=== PATIENT | female | born 1975 | race Caucasian/White ===

== ENCOUNTER 2017-01-06 01:40 | Emergency (ER) | payer MEDICAID | END 2017-01-06 04:19 | disposition home or self-care (01) | DX: K80.20 Calculus of gallbladder without cholecystitis without obstruction (principal); R31.9 Hematuria, unspecified; Z87.442 Personal history of urinary calculi; E11.9 Type 2 diabetes mellitus without complications; Z79.84 Long term (current) use of oral hypoglycemic drugs; E03.9 Hypothyroidism, unspecified ==

== ENCOUNTER 2017-01-13 05:18 | Outpatient (CLI) | payer MEDICAID | END 2017-01-13 05:19 | disposition critical access hospital (66) | DX: R10.9 Unspecified abdominal pain (principal); R11.2 Nausea with vomiting, unspecified | CPT/HCPCS: A0425; A0429 ==

== ENCOUNTER 2017-01-13 05:28 | Day surgery (SDC) | payer MEDICAID ==
[2017-01-13] MEDS ORDERED: SODIUM CHLORIDE 0.9% 1,000 ML IV ONE ×2 (06:12→06:13)
[2017-01-13] MEDS ORDERED: ONDANSETRON 4 MG/2 ML VIAL IVP STA (06:12)
[2017-01-13] MEDS ORDERED: HYDROmorphone 1 MG/ML SYRINGE IVP STA (06:12)
[2017-01-13] MEDS ORDERED: HYDROmorphone 1 MG/ML SYRINGE ONE (06:13)
[2017-01-13] MEDS ORDERED: ONDANSETRON 4 MG/2 ML VIAL ONE ×2 (06:13→18:44)
[2017-01-13] MEDS ORDERED: LACTATED RINGERS 1,000 ML IV ONE ×2 (09:26→16:50)
[2017-01-13] MEDS ORDERED: PIPERACILLIN/TAZOBACTAM 3.375 GM in SODIUM CHLORIDE 0.9% MINIBAG 100 ML IV ONE (16:00)
[2017-01-13] MEDS ORDERED: BUPIVACAINE 0.5%-EPI 1:200000 PF 30 ML VIAL SUBQ ONE ×2 (16:31)
[2017-01-13] MEDS ORDERED: ONDANSETRON 4 MG/2 ML VIAL IVP ONE (16:51)
[2017-01-13] MEDS ORDERED: NEOSTIGMINE 1 MG/1 ML 10 ML MDV IVP ONE (16:51)
[2017-01-13] MEDS ORDERED: METOCLOPRAMIDE 10 MG/2 ML VIAL IVP ONE (16:51)
[2017-01-13] MEDS ORDERED: GLYCOPYRROLATE 1 MG/5 ML VIAL IVP ONE (16:51)
[2017-01-13] MEDS ORDERED: ROCURONIUM 50 MG/5 ML VIAL IVP ONE (16:51)
[2017-01-13] MEDS ORDERED: SUCCINYLCHOLINE 200 MG/10 ML VIAL IVP ONE (16:51)
[2017-01-13] MEDS ORDERED: HYDROmorphone 1 MG/ML SYRINGE IVP ONE (16:51)
[2017-01-13] MEDS ORDERED: ACETAMINOPHEN 1,000 MG/100 ML VIAL IV ONE (16:51)
[2017-01-13] MEDS ORDERED: PHENYLEPHRINE 50 MG/5 ML VIAL IV ONE (16:51)
[2017-01-13] MEDS ORDERED: LIDOCAINE-MPF 2% 5 ML VIAL IM ONE (16:51)
[2017-01-13] MEDS ORDERED: KETOROLAC 30 MG/ML VIAL IVP ONE (16:51)
[2017-01-13] MEDS ORDERED: MIDAZOLAM 2 MG/2 ML VIAL IVP ONE (16:51)
[2017-01-13] MEDS ORDERED: PROPOFOL 200 MG/20 ML VIAL IVP ONE (16:51)
[2017-01-13] MEDS ORDERED: MEPERIDINE 50 MG/ML SYRINGE ONE (17:46)
[2017-01-13] MEDS ORDERED: oxyCOD/ACETAMIN 5 MG/325 MG TABLET PO ONE (18:33)
== END 2017-01-13 09:01 | disposition home or self-care (01) ==
PROC: 0FT44ZZ Resection of Gallbladder, Percutaneous Endoscopic Approach (ICD-10-PCS; principal; 2017-01-13 13:30)
DX: K80.10 Calculus of gallbladder with chronic cholecystitis without obstruction (principal); E11.9 Type 2 diabetes mellitus without complications; Z79.4 Long term (current) use of insulin; E03.9 Hypothyroidism, unspecified; E66.01 Morbid (severe) obesity due to excess calories; F41.8 Other specified anxiety disorders; Z68.36 Body mass index [BMI] 36.0-36.9, adult
CPT/HCPCS: 36415; 47562; 80053; 81025; 83690; 85025; 96361; 96374; 96375; 99284; 99285; A9270; J0131; J1170; J7120

== ENCOUNTER 2017-01-23 11:00 | Outpatient (CLI) | payer MEDICAID | END 2017-01-23 11:01 | disposition home or self-care (01) | DX: Z12.31 Encounter for screening mammogram for malignant neoplasm of breast (principal) ==

== ENCOUNTER 2017-01-31 07:43 | Outpatient (CLI) | payer MEDICAID | END 2017-01-31 07:44 | disposition home or self-care (01) | DX: Z51.81 Encounter for therapeutic drug level monitoring (principal); E78.5 Hyperlipidemia, unspecified; E11.9 Type 2 diabetes mellitus without complications; E53.1 Pyridoxine deficiency; E06.3 Autoimmune thyroiditis ==

== ENCOUNTER 2017-06-04 09:34 | Outpatient (CLI) | payer MEDICAID ==
[2017-06-04 13:32] LABS: CHOL/HDL RATIO 5.6 (<4.4); CHOLESTEROL 219 mg/dL; HDL CHOLESTEROL 39 mg/dL; LDL/HDL RATIO 3.1 (<4.4); TRIGLYCERIDES 307 mg/dL; VLDL CHOLESTEROL 61 mg/dL
[2017-06-04 13:52] LABS: THYROID STIMULATING HORMONE 1.38 uIU/mL (0.34-5.60)
[2017-06-04 13:54] LABS: HEMOGLOBIN A1C 0.67 g/dL
== END 2017-06-04 09:35 | disposition home or self-care (01) ==
LOC: LAB.WCP 09:34
PROVIDERS: ATTEND Physician Assistant Medical
DX: E11.9 Type 2 diabetes mellitus without complications (principal); E78.5 Hyperlipidemia, unspecified; Z51.81 Encounter for therapeutic drug level monitoring; Z79.899 Other long term (current) drug therapy; E53.1 Pyridoxine deficiency; E06.3 Autoimmune thyroiditis
CPT/HCPCS: 36415; 80061; 82043; 82607; 83036; 84207; 84443

== ENCOUNTER 2017-08-28 10:05 | Outpatient (CLI) | payer MEDICAID | END 2017-08-28 10:06 | disposition home or self-care (01) | LOC: LAB.WCP 10:05 | PROVIDERS: ATTEND Family Medicine | DX: N39.0 Urinary tract infection, site not specified (principal) | CPT/HCPCS: 87086 ==

== ENCOUNTER 2017-10-05 21:01 | Emergency (ER) | payer MEDICAID ==
[2017-10-05] MEDS ORDERED: SULFAM/TRIM 800/160 Prepack 2 PO ONE ×2 (22:58→23:29)
--- NOTE | 2017-10-05 23:00 | ED Physician Documentation ---
PD HPI SKIN - Stated complaint Stated Complaint: FEMALE - Chief complaint Chief Complaint: Wound - History obtained from History obtained from: Patient - History of Present Illness Timing - onset: How many days ago (3) Timing - duration: Days (3) Timing - details: Gradual onset, Still present Location: Other (right buttocks) Quality / character: Painful Associated symptoms: No: Fever, Myalgias Similar symptoms before: Has not had sx before Recently seen: Not recently seen - Additional information Additional information: 42-year-old female has an area on her right buttocks that is tender sore red and raised. She has been using a heating pack to the area and this is worsened over the past 2 days. She is come in this evening with intolerable pain. She does not have any fluctuance to the area and no drainage to the area Review of Systems Constitutional: denies: Fever Eyes: denies: Decreased vision Nose: denies: Congestion Respiratory: denies: Cough GI: denies: Vomiting : denies: Dysuria Skin: reports: Other (Red tender area over the buttocks) Neurologic: denies: Generalized weakness, Focal weakness, Numbness PD PAST MEDICAL HISTORY - Past Medical History Cardiovascular: None Respiratory: None Endocrine/Autoimmune: Type 2 diabetes, HyPOthyroidism GI: Cholelithiasis : None HEENT: None Psych: Depression, Anxiety Musculoskeletal: Chronic back pain Derm: None - Past Surgical History Past Surgical History: No - Present Medications Home Medications: Ambulatory Orders Medication Instructions Recorded Confirmed Bupropion HCl [Wellbutrin] 100 mg PO .FREQ 04/25/16 10/05/17 Escitalopram [Lexapro] 10 mg PO DAILY 04/25/16 10/05/17 Levothyroxine [Synthroid] 25 mcg PO QDAC 04/25/16 10/05/17 Sulfamethoxazole/Trimethoprim 1 each PO BID #14 tablet 10/05/17 [Sulfamethoxazole-Tmp Ds Tablet] - Allergies Allergies/Adverse Reactions: Allergies Allergy/AdvReac Type Severity Reaction Status Date / Time No Known Drug Allergies Allergy Verified 10/05/17 21:45 - Social History Does the pt smoke?: No Smoking Status: Never smoker Does the pt drink ETOH?: Yes Does the pt have substance abuse?: No - Immunizations Immunizations are current?: Yes - POLST Patient has POLST: No PD ED PE NORMAL - Vitals Vital signs reviewed: Yes (Hypertensive) - General General: Alert and oriented X 3, No acute distress, Well developed/nourished - HEENT HEENT: Atraumatic - Respiratory Respiratory: No respiratory distress - Derm Derm: Normal color, Warm and dry, Other (Over the right buttocks medially is an area approximately 3 cm round that is firm erythematous tender and without fluctuance. There is a central area of skin breakdown without drainage.The area is examined with the bedside ultrasound there is no fluid collection. There are multiple septations in the skin.) - Extremities Extremities: No deformity, No edema - Neuro Neuro: Alert and oriented X 3, No motor deficit, No sensory deficit, Normal speech Eye Opening: Spontaneous Motor: Obeys Commands Verbal: Oriented GCS Score: 15 - Psych Psych: Normal mood, Normal affect Results - Vitals Vitals: Vital Signs - 24 hr 10/05/17 21:43 Temperature 98.3 C H Heart Rate 90 Respiratory 16 Rate Blood Pressure 165/99 H O2 Saturation 98 Oxygen O2 Source Room air Procedures - Bedside sono Bedside sono by EMP: With use of bedside ultrasound the abscess area is examined there is no correct fluid component there are multiple septations none of them are wide. PD MEDICAL DECISION MAKING - ED course Complexity details: reviewed old records, considered differential, d/w patient ED course: 42-year-old female with an abscess to the right buttocks that is not right. She is given Septra DS and instructions on when or if to follow-up for abscess incision and drainage. Departure - Departure Disposition: 01 Home, Self Care Clinical Impression: Abscess of buttock, right Condition: Stable Instructions: ED Staph Infec Abx Tx Only Follow-Up: Marilee Davila PA-C [Primary Care Provider] - Prescriptions: Sulfamethoxazole/Trimethoprim [Sulfamethoxazole-Tmp Ds Tablet] 1 each PO BID # 14 tablet Comments: Today in the Emergency Department your blood pressure was elevated. This can happen from the stress of the visit itself, from a current illness or circumstance or from uncontrolled hypertension. If you take blood pressure medications take your usual mediations, have your blood pressure re-checked in an appropriate setting and follow up any elevation with your primary care doctor.
[2017-10-05 23:32] VITALS: BP 126/76
== END 2017-10-05 23:29 | disposition home or self-care (01) ==
LOC: ED 21:01
DX: L02.31 Cutaneous abscess of buttock (principal); E11.9 Type 2 diabetes mellitus without complications; E03.9 Hypothyroidism, unspecified; R03.0 Elevated blood-pressure reading, without diagnosis of hypertension
CPT/HCPCS: 99283

== ENCOUNTER 2017-11-21 16:00 | Outpatient (CLI) | payer MEDICAID | END 2017-11-21 16:01 | disposition home or self-care (01) | LOC: LAB.R 16:00 | PROVIDERS: ATTEND Physician Assistant Medical | DX: N39.0 Urinary tract infection, site not specified (principal) | CPT/HCPCS: 87086 ==

== ENCOUNTER 2018-05-15 10:48 | Outpatient (CLI) | payer MEDICAID ==
[2018-05-15 19:29] LABS: ALBUMIN 3.9 g/dL (3.2-5.5); ALKALINE PHOSPHATASE 59 IU/L (42-121); ALT ALANINE AMINOTRANSFERASE 25 IU/L (10-60); AST ASPARTATE AMINOTRANSFERASE 25 IU/L (10-42); BILIRUBIN,TOTAL 0.6 mg/dL (0.2-1.0); BUN - BLOOD UREA NITROGEN 12 mg/dL (6-20); CALCIUM 8.9 mg/dL (8.5-10.3); CARBON DIOXIDE - CO2 22 mmol/L (21-32); CHLORIDE 103 mmol/L (101-111); CHOL/HDL RATIO 4.6 (<4.4); CHOLESTEROL 198 mg/dL; CREATININE 0.6 mg/dL (0.4-1.0); GFR - MDRD 109 (>89); GLUCOSE 140 mg/dL (70-100); HDL CHOLESTEROL 43 mg/dL; LDL CHOLESTEROL,CALCULATED 100 mg/dL; LDL/HDL RATIO 2.3 (<4.4); SODIUM 134 mmol/L (135-145); TOTAL PROTEIN 7.8 g/dL (6.7-8.2); VLDL CHOLESTEROL 55 mg/dL
[2018-05-15 19:30] LABS: HB2 TOTAL 14.3 g/dL; HEMOGLOBIN A1C 0.77 g/dL; HEMOGLOBIN A1C % 7.1 % (4.6-6.2)
[2018-05-15 19:39] LABS: THYROID STIMULATING HORMONE 2.65 uIU/mL (0.34-5.60)
== END 2018-05-15 10:49 | disposition home or self-care (01) ==
LOC: LAB.WCP 10:48
PROVIDERS: ATTEND Physician Assistant Medical
DX: E53.8 Deficiency of other specified B group vitamins (principal); Z51.81 Encounter for therapeutic drug level monitoring; E78.5 Hyperlipidemia, unspecified; E11.9 Type 2 diabetes mellitus without complications; E06.3 Autoimmune thyroiditis
CPT/HCPCS: 36415; 80053; 80061; 82607; 83036; 83721; 84443

== ENCOUNTER 2018-07-07 14:46 | Emergency (ER) | payer MEDICAID ==
[2018-07-07] MEDS ORDERED: PENICILLIN VK 250 MG TABLET PO STA (15:55)
[2018-07-07] MEDS ORDERED: HYDROcod/ACETAM 5/325 MG TABLET PO STA (15:55)
--- NOTE | 2018-07-07 15:57 | ED Physician Documentation ---
History of Present Illness - Stated complaint Stated Complaint: TOOTH PX - Chief complaint Chief Complaint: Heent - History obtained from History obtained from: Patient - History of Present Illness Timing: How many days ago (4) Pain level max: 8 Pain level now: 7 Improved by: nothing Worsened by: eating - Additonal information Additional information: Patient is a 43-year-old female who presents to the emergency department with left-sided dental pain, she is unclear if it is on the upper lower part of the jaw. Attempted to call her dentist this morning but they are not open until tomorrow. No fevers. Is taken Motrin and Tylenol without relief. No facial swelling. No vomiting. Is not , breast-feeding or attempting to become Review of Systems Constitutional: denies: Fever, Chills GI: denies: Vomiting : denies: Now EGA Skin: denies: Rash Musculoskeletal: denies: Neck pain, Back pain PD PAST MEDICAL HISTORY - Past Medical History Past Medical History: Yes Cardiovascular: None Respiratory: None Endocrine/Autoimmune: Type 2 diabetes, HyPOthyroidism GI: Cholelithiasis : None HEENT: None Psych: Depression, Anxiety Musculoskeletal: Chronic back pain Derm: None - Past Surgical History Past Surgical History: Yes General: Cholecystectomy - Present Medications Home Medications: Ambulatory Orders Medication Instructions Recorded Confirmed Bupropion HCl [Wellbutrin] 100 mg PO .FREQ 04/25/16 10/05/17 Escitalopram [Lexapro] 10 mg PO DAILY 04/25/16 10/05/17 Levothyroxine [Synthroid] 25 mcg PO QDAC 04/25/16 10/05/17 Sulfamethoxazole/Trimethoprim 1 each PO BID #14 tablet 10/05/17 [Sulfamethoxazole-Tmp Ds Tablet] Hydrocodone/Acetaminophen 1 - 2 each PO Q6H PRN #10 tablet 07/07/18 [Hydrocodon-Acetaminophen 5-325] Penicillin V Potassium 500 mg PO Q6HR #40 tablet 07/07/18 - Allergies Allergies/Adverse Reactions: Allergies Allergy/AdvReac Type Severity Reaction Status Date / Time No Known Drug Allergies Allergy Verified 07/07/18 14:55 - Social History Does the pt smoke?: No Smoking Status: Never smoker Does the pt drink ETOH?: Yes Does the pt have substance abuse?: No - Immunizations Immunizations are current?: Yes - POLST Patient has POLST: No PD ED PE NORMAL - Vitals Vital signs reviewed: Yes - General General: Alert and oriented X 3, No acute distress - HEENT HEENT: Ears normal, Moist mucous membranes, Pharynx benign, Other (Tender to palpation along the left upper gumline. No visible abscess. No visible dental decay. Otherwise normal examination of the mouth) - Neck Neck: Supple, no meningeal sign, No adenopathy - Cardiac Cardiac: RRR, Strong equal pulses - Respiratory Respiratory: No respiratory distress, Clear bilaterally - Derm Derm: Warm and dry - Neuro Neuro: Alert and oriented X 3 - Psych Psych: Normal mood, Normal affect Results - Vitals Vitals: Vital Signs - 24 hr 07/07/18 07/07/18 14:52 16:10 Temperature 36.5 C 37.0 C Heart Rate 87 79 Respiratory 16 17 Rate Blood Pressure 143/91 H 143/96 H O2 Saturation 99 99 Oxygen O2 Source Room air PD MEDICAL DECISION MAKING - ED course Complexity details: considered differential, d/w patient ED course: Patient is a 43-year-old female with dental pain. Will start on antibiotics and prescribe pain medications as well. She is well-appearing, nontoxic. Afebrile. Tolerating p.o. without difficulty. We will have her follow-up with her dentist for further care. Patient counseled regarding signs and symptoms for which I believe and urgent re-evaluation would be necessary. Patient with good understanding of and agreement to plan and is comfortable going home at this time This document was made in part using voice recognition software. While efforts are made to proofread this document, sound alike and grammatical errors may occur. No drainable abscess. No Martin's angina. No facial cellulitis - Sepsis Event Vital Signs: Vital Signs - 24 hr 07/07/18 07/07/18 14:52 16:10 Temperature 36.5 C 37.0 C Heart Rate 87 79 Respiratory 16 17 Rate Blood Pressure 143/91 H 143/96 H O2 Saturation 99 99 Oxygen O2 Source Room air Departure - Departure Disposition: 01 Home, Self Care Clinical Impression: Pain, dental Condition: Good Instructions: ED Tooth Pain Follow-Up: Tonya Gimenez PA-C [Primary Care Provider] - Prescriptions: Penicillin V Potassium 500 mg PO Q6HR #40 tablet Hydrocodone/Acetaminophen [Hydrocodon-Acetaminophen 5-325] 1 - 2 each PO Q6H PRN #10 tablet PRN Reason: pain Comments: Take all antibiotics until gone. It is important to follow-up with dentistry for further care. Do not drink alcohol or drive while on narcotic pain medicine. Note that many narcotic pain relievers also contain tylenol/acetaminophen. Please ensure that your total dose of acetaminophen from all sources does not exceed 3 grams (3000mg) per day. You may constipated on this medication, take a stool softener such as "Colace" twice a day while you are on it. Also recommend a [id number] laxative such as senna or MiraLAX any day that you do not have a bowel movement. If you received narcotic pain medication in the emergency department, do not drive or operate machinery for the next 24 hours. Discharge Date/Time: 07/07/18 16:09
[2018-07-07 16:11] VITALS: BP 143/96
== END 2018-07-07 16:09 | disposition home or self-care (01) ==
LOC: ED 14:46
DX: K08.89 Other specified disorders of teeth and supporting structures (principal); E10.9 Type 1 diabetes mellitus without complications; E03.9 Hypothyroidism, unspecified
CPT/HCPCS: 99283; A9270

== ENCOUNTER 2018-09-09 15:27 | Outpatient (CLI) | payer MEDICAID ==
--- NOTE | 2018-09-09 16:00 | XRAY Report ---
Reason: BL FOOT PAIN Procedure Date: 09/09/2018 Accession Number: [id number] / [id number] Procedure: XR - Foot 3 View BILAT CPT Code: FULL RESULT: EXAMS: 1. Right Foot Radiography 2. Left Foot Radiography EXAM DATE: 09/09/2018 03:40 PM. CLINICAL HISTORY: Bilateral foot pain. COMPARISON: None. TECHNIQUE: 3 views each foot. FINDINGS: Right: Bones: Mild inferior calcaneal spurring. No fractures or bone lesions. Joints: Normal. No subluxations. Soft Tissues: Normal. No soft tissue swelling. Left: Bones: Mild inferior calcaneal spurring. There is minimal spurring at the insertion of the Achilles tendon. No fractures or bone lesions. Joints: Normal. No subluxations. Soft Tissues: Normal. No soft tissue swelling. IMPRESSION: Calcaneal spurring with no significant degenerative changes. RADIA
== END 2018-09-09 15:28 | disposition home or self-care (01) ==
LOC: DI 15:27
PROVIDERS: ATTEND Podiatrist
DX: M77.32 Calcaneal spur, left foot (principal); M77.31 Calcaneal spur, right foot

== ENCOUNTER 2018-12-09 10:22 | Outpatient (CLI) | payer MEDICAID ==
[2018-12-09 13:00] LABS: BUN - BLOOD UREA NITROGEN 10 mg/dL (6-20); CALCIUM 9.1 mg/dL (8.5-10.3); CARBON DIOXIDE - CO2 22 mmol/L (21-32); CHLORIDE 102 mmol/L (101-111); CHOL/HDL RATIO 5.1 (<4.4); CHOLESTEROL 188 mg/dL; CREATININE 0.6 mg/dL (0.4-1.0); GFR - MDRD 109 (>89); GLUCOSE 185 mg/dL (70-100); HDL CHOLESTEROL 37 mg/dL; LDL CHOLESTEROL,CALCULATED 99 mg/dL; LDL/HDL RATIO 2.7 (<4.4); SODIUM 134 mmol/L (135-145); VLDL CHOLESTEROL 52 mg/dL
[2018-12-09 13:06] LABS: HB2 TOTAL 13.9 g/dL; HEMOGLOBIN A1C 0.76 g/dL; HEMOGLOBIN A1C % 7.2 % (4.6-6.2)
== END 2018-12-09 10:23 | disposition home or self-care (01) ==
LOC: LAB.WCP 10:22
PROVIDERS: ATTEND Physician Assistant Medical
DX: E11.9 Type 2 diabetes mellitus without complications (principal)
CPT/HCPCS: 36415; 80048; 80061; 83036; 83721

== ENCOUNTER 2019-02-08 12:25 | Outpatient (CLI) | payer MEDICAID ==
[2019-02-08 19:54] LABS: THYROID STIMULATING HORMONE 1.34 uIU/mL (0.34-5.60)
[2019-02-08 19:56] LABS: FREE T4 (FREE THYROXINE) 0.76 ng/dL (0.58-1.64)
[2019-02-08 20:21] LABS: FOLLICLE STIMULATING HORMONE 5.02 mIU/mL
[2019-02-12 06:46] LABS: ESTRADIOL 57 pg/mL
== END 2019-02-08 23:59 ==
LOC: LAB.WCP 12:25
PROVIDERS: ATTEND Nurse Practitioner
DX: E06.3 Autoimmune thyroiditis (principal); R53.83 Other fatigue
CPT/HCPCS: 36415; 82670; 82784; 83001; 83516; 84439; 84443; 84481; 86256; 86376

== ENCOUNTER 2019-03-10 13:26 | Outpatient (CLI) | payer MEDICAID ==
[2019-03-10 19:12] LABS: ALBUMIN 3.9 g/dL (3.2-5.5); ALBUMIN/GLOBULIN RATIO 1.2 (1.0-2.2); BILIRUBIN,TOTAL 0.5 mg/dL (0.2-1.0); CREATININE 0.6 mg/dL (0.4-1.0); TOTAL PROTEIN 7.1 g/dL (6.7-8.2)
[2019-03-10 19:15] LABS: HB2 TOTAL 13.6 g/dL; HEMOGLOBIN A1C 0.88 g/dL; HEMOGLOBIN A1C % 8.1 % (4.6-6.2)
== END 2019-03-10 13:27 | disposition home or self-care (01) ==
LOC: LAB.WCP 13:26
PROVIDERS: ATTEND Physician Assistant Medical
DX: E11.9 Type 2 diabetes mellitus without complications (principal)
CPT/HCPCS: 36415; 80053; 83036

== ENCOUNTER 2019-05-31 13:25 | Emergency (ER) | payer MEDICAID ==
[2019-05-31 15:40] LABS: BASOPHILS # (AUTO) 0.1 10^3/uL (0.0-0.1); BASOPHILS % (AUTO) 0.5 %; EOSINOPHILS # (AUTO) 0.2 10^3/uL (0.0-0.7); EOSINOPHILS % (AUTO) 1.5 %; HGB - HEMOGLOBIN 13.7 g/dL (12.0-16.0); LYMPHOCYTES # (AUTO) 3.8 10^3/uL (1.5-3.5); LYMPHOCYTES % (AUTO) 32.5 %; MEAN CORPUSCULAR HEMOGLOBIN 31.2 pg (27.0-31.0); MEAN CORPUSCULAR HGB CONC 33.3 g/dL (32.0-36.0); MEAN CORPUSCULAR VOLUME 93.6 fL (81.0-99.0); MEAN PLATELET VOLUME 9.1 fL (7.9-10.8); MONOCYTES # (AUTO) 0.6 10^3/uL (0.0-1.0); MONOCYTES % (AUTO) 5.5 %; NEUTROPHILS % (AUTO) 59.6 %; PLT - PLATELET COUNT 296 10^3/uL (130-450); RED BLOOD COUNT 4.39 10^6/uL (4.20-5.40); RED CELL DISTRIBUTION WIDTH 13.2 % (12.0-15.0); WHITE BLOOD COUNT 11.7 x10^3/uL (4.8-10.8)
[2019-05-31 15:53] LABS: ALBUMIN 4.3 g/dL (3.2-5.5); ALBUMIN/GLOBULIN RATIO 1.1 (1.0-2.2); BILIRUBIN,TOTAL 0.3 mg/dL (0.2-1.0); CALCIUM 9.7 mg/dL (8.5-10.3); CREATININE 0.6 mg/dL (0.4-1.0); TOTAL PROTEIN 8.3 g/dL (6.7-8.2)
[2019-05-31 16:08] LABS: BILIRUBIN,URINE NEGATIVE (NEGATIVE); GLUCOSE, URINE (UA) 500 mg/dL (NEGATIVE); KETONES,URINE (UA) 15 mg/dL (NEGATIVE); LEUKOCYTE ESTERASE, URINE NEGATIVE (NEGATIVE); NITRITE,URINE NEGATIVE (NEGATIVE); OCCULT BLOOD,URINE TRACE-INTA (NEGATIVE); PROTEIN,URINE NEGATIVE (NEGATIVE); UROBILINOGEN,URINE 0.2 (NORMAL) E.U./dL (NORMAL)
[2019-05-31 16:12] LABS: CLARITY,URINE CLEAR (CLEAR); HCG UR QUAL NEGATIVE
--- NOTE | 2019-05-31 16:14 | ED Physician Documentation ---
PD HPI NVD - Stated complaint Stated Complaint: DIZZY - Chief complaint Chief Complaint: Abd Pain - History obtained from History obtained from: Patient - History of Present Illness Timing - onset: Other (Has H/O IBS with intermittent diarrhea. Has had 3 days of diarrhea, NB. No N/V. No abd pain or fevers. Boyfriend also with diarrhea. Started to get lightheaded today.) Review of Systems Ten Systems: 10 systems reviewed and negative Constitutional: denies: Fever, Chills Cardiac: denies: Chest pain / pressure, Palpitations Respiratory: denies: Dyspnea, Cough GI: denies: Abdominal Pain, Nausea, Vomiting PD PAST MEDICAL HISTORY - Past Medical History Cardiovascular: None Respiratory: None Endocrine/Autoimmune: Type 2 diabetes, HyPOthyroidism GI: Cholelithiasis : None HEENT: None Psych: Depression, Anxiety Musculoskeletal: Chronic back pain Derm: None - Past Surgical History Past Surgical History: Yes General: Cholecystectomy - Present Medications Home Medications: Ambulatory Orders Medication Instructions Recorded Confirmed Bupropion HCl [Wellbutrin] 100 mg PO .FREQ 04/25/16 10/05/17 Escitalopram [Lexapro] 10 mg PO DAILY 04/25/16 10/05/17 Levothyroxine [Synthroid] 25 mcg PO QDAC 04/25/16 10/05/17 Diphenoxylate/Atropine [Lomotil] 1 each PO QID PRN #20 tablet 05/31/19 - Allergies Allergies/Adverse Reactions: Allergies Allergy/AdvReac Type Severity Reaction Status Date / Time No Known Drug Allergies Allergy Verified 05/31/19 13:30 - Social History Does the pt smoke?: No Smoking Status: Never smoker Does the pt drink ETOH?: Yes Does the pt have substance abuse?: No - Immunizations Immunizations are current?: Yes - POLST Patient has POLST: No PD ED PE NORMAL - Vitals Vital signs reviewed: Yes - General General: Alert and oriented X 3, No acute distress - HEENT HEENT: PERRL, EOMI, Pharynx benign - Neck Neck: Supple, no meningeal sign, No bony TTP - Cardiac Cardiac: RRR, No murmur - Respiratory Respiratory: No respiratory distress, Clear bilaterally - Abdomen Abdomen: Normal bowel sounds, Soft, Non tender - Back Back: No CVA TTP, No spinal TTP - Derm Derm: Normal color, Warm and dry - Extremities Extremities: No edema, No calf tenderness / cord - Neuro Neuro: Alert and oriented X 3, Normal speech Results - Vitals Vitals: Vital Signs - 24 hr 05/31/19 05/31/19 13:29 16:07 Temperature 36.3 C L Heart Rate 93 82 Respiratory 20 20 Rate Blood Pressure 154/87 H 149/108 H O2 Saturation 96 98 Oxygen O2 Source Room air - Labs Labs: Laboratory Tests 05/31/19 05/31/19 05/31/19 15:26 15:26 15:36 WBC 11.7 H RBC 4.39 Hgb 13.7 Hct 41.1 MCV 93.6 MCH 31.2 H MCHC 33.3 RDW 13.2 Plt Count 296 MPV 9.1 Neut # (Auto) 7.0 H Lymph # (Auto) 3.8 H [place] # (Auto) 0.6 Eos # (Auto) 0.2 Baso # (Auto) 0.1 Absolute Nucleated RBC 0.00 Nucleated RBC % 0.0 Sodium Potassium Chloride Carbon Dioxide Anion Gap BUN Creatinine Estimated GFR (MDRD) Glucose Calcium Total Bilirubin AST ALT Alkaline Phosphatase Total Protein Albumin Globulin Albumin/Globulin Ratio Lipase Urine Color YELLOW Urine Clarity CLEAR Urine pH 5.0 Ur Specific [place] >=1.030 H >=1.030 H Urine Protein NEGATIVE Urine Glucose (UA) 500 H Urine Ketones 15 H Urine Occult Blood TRACE-INTA Urine Nitrite NEGATIVE Urine Bilirubin NEGATIVE Urine Urobilinogen 0.2 (NORMAL) Ur Leukocyte Esterase NEGATIVE Ur Microscopic Review NOT INDICATED Urine Culture Comments NOT INDICATED Urine HCG, Qual NEGATIVE 05/31/19 15:36 WBC RBC Hgb Hct MCV MCH MCHC RDW Plt Count MPV Neut # (Auto) Lymph # (Auto) [place] # (Auto) Eos # (Auto) Baso # (Auto) Absolute Nucleated RBC Nucleated RBC % Sodium 137 Potassium 4.2 Chloride 105 Carbon Dioxide 20 L Anion Gap 12.0 BUN 12 Creatinine 0.6 Estimated GFR (MDRD) 109 Glucose 157 H Calcium 9.7 Total Bilirubin 0.3 AST 39 ALT 44 Alkaline Phosphatase 63 Total Protein 8.3 H Albumin 4.3 Globulin 4.0 Albumin/Globulin Ratio 1.1 Lipase 28 Urine Color Urine Clarity Urine pH Ur Specific [place] Urine Protein Urine Glucose (UA) Urine Ketones Urine Occult Blood Urine Nitrite Urine Bilirubin Urine Urobilinogen Ur Leukocyte Esterase Ur Microscopic Review Urine Culture Comments Urine HCG, Qual Departure - Departure Disposition: Home, Self Care Clinical Impression: Dehydration Diarrhea Qualifiers: Diarrhea type: functional diarrhea Qualified Code(s): K59.1 - Functional diarrhea Condition: Good Record reviewed to determine appropriate education?: Yes Instructions: ED Dehydration Prescriptions: Diphenoxylate/Atropine [Lomotil] 1 each PO QID PRN #20 tablet PRN Reason: Diarrhea Comments: Follow-up with your primary care physician this week as scheduled. Return for new worsening symptoms. Discuss GI referral since you have never had a colonoscopy. Your blood pressure was elevated today on check into the emergency department. This does not mean that you have hypertension, it is a common phenomenon to come to the emergency department and have elevated blood pressure. I recommend that you see your primary care physician within the week to have it rechecked when you are feeling better.
[2019-05-31] MEDS ORDERED: LACTATED RINGERS 2,000 ML IV STA (16:16)
[2019-05-31] MEDS ORDERED: DIPHENOX/ATROPINE 2.5/0.025 MG TABLET PO STA (16:24)
[2019-05-31 18:23] VITALS: BP 129/74
[2019-05-31] MEDS ORDERED: ONDANSETRON ODT 4 MG TABLET TL STA (18:30)
== END 2019-05-31 18:59 | disposition home or self-care (01) ==
LOC: ED 13:25
DX: E86.0 Dehydration (principal); R19.7 Diarrhea, unspecified; E11.9 Type 2 diabetes mellitus without complications; R03.0 Elevated blood-pressure reading, without diagnosis of hypertension
CPT/HCPCS: 36415; 80053; 81003; 81025; 83690; 85025; 99283; 99284; A9270; J7120; Q0162; 81001; 87086

== ENCOUNTER 2019-06-08 08:00 | Outpatient (CLI) | payer MEDICAID ==
[2019-06-08 19:35] LABS: ALBUMIN 4.2 g/dL (3.2-5.5); ALBUMIN/GLOBULIN RATIO 1.2 (1.0-2.2); ALKALINE PHOSPHATASE 55 IU/L (42-121); ALT ALANINE AMINOTRANSFERASE 42 IU/L (10-60); AST ASPARTATE AMINOTRANSFERASE 30 IU/L (10-42); BILIRUBIN,TOTAL 0.6 mg/dL (0.2-1.0); BUN - BLOOD UREA NITROGEN 8 mg/dL (6-20); CALCIUM 9.5 mg/dL (8.5-10.3); CARBON DIOXIDE - CO2 18 mmol/L (21-32); CHLORIDE 105 mmol/L (101-111); CHOL/HDL RATIO 5.8 (<4.4); CHOLESTEROL 215 mg/dL; CREATININE 0.6 mg/dL (0.4-1.0); GFR - MDRD 109 (>89); GLUCOSE 212 mg/dL (70-100); HDL CHOLESTEROL 37 mg/dL; LDL CHOLESTEROL,CALCULATED 112 mg/dL; SODIUM 139 mmol/L (135-145); TOTAL PROTEIN 7.8 g/dL (6.7-8.2); VLDL CHOLESTEROL 66 mg/dL
[2019-06-08 20:19] LABS: HB2 TOTAL 13.9 g/dL; HEMOGLOBIN A1C 0.99 g/dL; HEMOGLOBIN A1C % 8.7 % (4.6-6.2)
== END 2019-06-08 08:01 | disposition home or self-care (01) ==
LOC: LAB.WCP 08:00
PROVIDERS: ATTEND Physician Assistant Medical
DX: E11.9 Type 2 diabetes mellitus without complications (principal)
CPT/HCPCS: 36415; 80053; 80061; 83036; 83721

== ENCOUNTER 2019-06-10 13:31 | Outpatient (CLI) | payer MEDICAID ==
[2019-06-10 20:04] LABS: H. PYLORIS ANTIGEN STL NEGATIVE (Negative)
== END 2019-06-10 23:59 | disposition home or self-care (01) ==
LOC: LAB.R 13:31
PROVIDERS: ATTEND Physician Assistant Medical
DX: K52.9 Noninfective gastroenteritis and colitis, unspecified (principal)
CPT/HCPCS: 81599; 83630; 87045; 87046; 87177; 87209; 87329; 87338; 87493

== ENCOUNTER 2019-11-12 07:00 | Outpatient (CLI) | payer MEDICAID ==
[2019-11-12 13:53] LABS: ALBUMIN 3.8 g/dL (3.2-5.5); ALBUMIN/GLOBULIN RATIO 1.2 (1.0-2.2); ALKALINE PHOSPHATASE 58 IU/L (42-121); ALT ALANINE AMINOTRANSFERASE 26 IU/L (10-60); AST ASPARTATE AMINOTRANSFERASE 18 IU/L (10-42); BILIRUBIN,TOTAL 0.5 mg/dL (0.2-1.0); BUN - BLOOD UREA NITROGEN 9 mg/dL (6-20); CALCIUM 8.5 mg/dL (8.5-10.3); CARBON DIOXIDE - CO2 22 mmol/L (21-32); CHLORIDE 103 mmol/L (101-111); CHOL/HDL RATIO 3.4 (<4.4); CHOLESTEROL 136 mg/dL; CREATININE 0.6 mg/dL (0.4-1.0); GFR - MDRD 109 (>89); GLUCOSE 185 mg/dL (70-100); HDL CHOLESTEROL 40 mg/dL; LDL CHOLESTEROL,CALCULATED 62 mg/dL; LDL/HDL RATIO 1.6 (<4.4); SODIUM 133 mmol/L (135-145); VLDL CHOLESTEROL 34 mg/dL
[2019-11-12 14:19] LABS: HB2 TOTAL 12.8 g/dL; HEMOGLOBIN A1C 0.9 g/dL; HEMOGLOBIN A1C % 8.6 % (4.6-6.2)
== END 2019-11-12 23:59 | disposition home or self-care (01) ==
LOC: LAB.WCP 07:00
PROVIDERS: ATTEND Physician Assistant Medical
DX: E11.9 Type 2 diabetes mellitus without complications (principal)
CPT/HCPCS: 36415; 80053; 80061; 83036; 83721

== ENCOUNTER 2020-05-09 12:00 | Outpatient (CLI) | payer MEDICAID ==
[2020-05-09 18:39] LABS: ALBUMIN 3.8 g/dL (3.2-5.5); ALBUMIN/GLOBULIN RATIO 1.2 (1.0-2.2); BILIRUBIN,TOTAL 0.6 mg/dL (0.2-1.0); CALCIUM 8.6 mg/dL (8.5-10.3); CREATININE 0.7 mg/dL (0.4-1.0); TOTAL PROTEIN 6.9 g/dL (6.7-8.2)
[2020-05-09 18:59] LABS: CREATININE,URINE 101.2 mg/dL; MICROALBUM/CREATININE RATIO,UR 8.9 ug/mg (<30.0); MICROALBUMIN,URINE 0.9 mg/dL (0-300.0)
[2020-05-09 19:06] LABS: HB2 TOTAL 13.1 g/dL; HEMOGLOBIN A1C 0.82 g/dL; HEMOGLOBIN A1C % 7.9 % (4.6-6.2)
== END 2020-05-09 23:59 | disposition home or self-care (01) ==
LOC: LAB.WCP 12:00
PROVIDERS: ATTEND Physician Assistant Medical
DX: E11.9 Type 2 diabetes mellitus without complications (principal); E06.3 Autoimmune thyroiditis; E53.8 Deficiency of other specified B group vitamins
CPT/HCPCS: 36415; 80053; 82043; 82570; 82607; 83036; 84443

== ENCOUNTER 2020-09-01 08:00 | Outpatient (CLI) | payer MEDICAID ==
[2020-09-01 18:24] LABS: CALCIUM 8.8 mg/dL (8.5-10.3); CREATININE 0.6 mg/dL (0.4-1.0)
[2020-09-01 20:31] LABS: HEMOGLOBIN A1c% 7.5 % (4.27-6.07)
== END 2020-09-01 23:59 | disposition home or self-care (01) ==
LOC: LAB.WCP 08:00
PROVIDERS: ATTEND Physician Assistant Medical
DX: E11.9 Type 2 diabetes mellitus without complications (principal)
CPT/HCPCS: 36415; 80048; 83036

== ENCOUNTER 2020-10-11 12:29 | Emergency (ER) | payer MEDICAID ==
[2020-10-11 13:09] LABS: BASOPHILS % (AUTO) 0.3 %; EOSINOPHILS # (AUTO) 0.1 10^3/uL (0.0-0.7); EOSINOPHILS % (AUTO) 0.8 %; HGB - HEMOGLOBIN 13.4 g/dL (12.0-16.0); LYMPHOCYTES # (AUTO) 3.1 10^3/uL (1.5-3.5); LYMPHOCYTES % (AUTO) 26.8 %; MEAN CORPUSCULAR HGB CONC 32.6 g/dL (32.0-36.0); MEAN CORPUSCULAR VOLUME 95.1 fL (81.0-99.0); MEAN PLATELET VOLUME 9.3 fL (7.9-10.8); MONOCYTES # (AUTO) 0.4 10^3/uL (0.0-1.0); MONOCYTES % (AUTO) 3.8 %; NEUTROPHILS # (AUTO) 7.8 10^3/uL (1.5-6.6); NEUTROPHILS % (AUTO) 67.9 %; PLT - PLATELET COUNT 275 10^3/uL (130-450); RED BLOOD COUNT 4.32 10^6/uL (4.20-5.40); RED CELL DISTRIBUTION WIDTH 12.7 % (12.0-15.0); WHITE BLOOD COUNT 11.4 x10^3/uL (4.8-10.8)
[2020-10-11 13:23] LABS: BILIRUBIN,URINE NEGATIVE (NEGATIVE); GLUCOSE, URINE (UA) NEGATIVE (NEGATIVE); KETONES,URINE (UA) TRACE mg/dL (NEGATIVE); LEUKOCYTE ESTERASE, URINE NEGATIVE (NEGATIVE); NITRITE,URINE POSITIVE (NEGATIVE); OCCULT BLOOD,URINE LARGE (NEGATIVE); PH,URINE 5.5 PH (5.0-7.5); PROTEIN,URINE NEGATIVE (NEGATIVE); UROBILINOGEN,URINE 0.2 (NORMAL) E.U./dL (NORMAL)
[2020-10-11 13:25] LABS: ALBUMIN/GLOBULIN RATIO 1.1 (1.0-2.2); BILIRUBIN,TOTAL 0.6 mg/dL (0.2-1.0); CALCIUM 9.1 mg/dL (8.5-10.3); CREATININE 0.7 mg/dL (0.4-1.0); TOTAL PROTEIN 7.7 g/dL (6.7-8.2)
[2020-10-11 13:25] LABS: HCG UR QUAL NEGATIVE
[2020-10-11] MEDS ORDERED: SODIUM CHLORIDE 0.9% 1,000 ML IV STA (13:26)
[2020-10-11 13:29] LABS: CLARITY,URINE HAZY (CLEAR)
--- NOTE | 2020-10-11 13:30 | ED Physician Documentation ---
History of Present Illness - Stated complaint Stated Complaint: FEMALE - Chief complaint Chief Complaint: Abd Pain - History obtained from History obtained from: Patient - History of Present Illness Timing: How many days ago (7) - Additonal information Additional information: 45-year-old female presents to the emergency department with chief complaint of 1 week vaginal bleeding fatigue and weakness. She does have a history of type 2 diabetes on glimepiride. She also has a history of Ehmanth's thyroiditis. She is on levothyroxine. She states that she began having vaginal spotting about 1 week ago and over the last 4 days she has had heavy vaginal bleeding sometimes changing pads and tampons as often as every hour. She is passing large clots. She denies that with Nexplanon now or in the past that she is ever had any menstrual cycles associated with it. Denies possibility of . No fevers or focal lower pelvic pain. Review of Systems Constitutional: reports: Fatigue. denies: Fever, Chills Eyes: reports: Reviewed and negative Ears: reports: Reviewed and negative Throat: reports: Reviewed and negative Cardiac: reports: Reviewed and negative Respiratory: reports: Reviewed and negative GI: reports: Reviewed and negative : reports: Vaginal bleeding Skin: reports: Reviewed and negative Musculoskeletal: reports: Reviewed and negative Neurologic: reports: Reviewed and negative Psychiatric: reports: Reviewed and negative PD PAST MEDICAL HISTORY - Past Medical History Cardiovascular: None Respiratory: None Endocrine/Autoimmune: Type 2 diabetes, HyPOthyroidism GI: Cholelithiasis : None HEENT: None Psych: Depression, Anxiety Musculoskeletal: Chronic back pain Derm: None - Past Surgical History Past Surgical History: Yes General: Cholecystectomy - Present Medications Home Medications: Ambulatory Orders Medication Instructions Recorded Confirmed Bupropion HCl [Wellbutrin] 100 mg PO DAILY 04/25/16 10/11/20 Escitalopram [Lexapro] 10 mg PO DAILY 04/25/16 10/11/20 Levothyroxine [Synthroid] 25 mcg PO QDAC 04/25/16 10/11/20 Atorvastatin [Lipitor] 0 mg ORAL DAILY 10/11/20 10/11/20 Colestipol HCl [Colestid] 2 gm PO HS 10/11/20 10/11/20 Glimepiride [Amaryl] 0 mg PO BID 10/11/20 10/11/20 - Allergies Allergies/Adverse Reactions: Allergies Allergy/AdvReac Type Severity Reaction Status Date / Time No Known Drug Allergies Allergy Verified 05/31/19 13:30 - Social History Does the pt smoke?: No Smoking Status: Never smoker Does the pt drink ETOH?: Yes Does the pt have substance abuse?: No - Immunizations Immunizations are current?: Yes - POLST Patient has POLST: No PD ED PE EXPANDED - General General: Alert, No acute distress, Other (obese) - HEENT HEENT: PERRL - Eyes Eyes: PERRL, EOMI - Neck Neck: Supple w/out meningeal sx, No tenderness. No: Adenopathy, Thyroid enlarged / mass - Cardiac Cardiac: Regular Rate, Regular Rhythm, Radial strong equal, Pedal strong equal, Cap refill < 2 sec - Respiratory Respiratory: Clear to ausultation angle. No: Distress, Labored - Abdomen Abdomen: Normal Bowel sounds. No: Tender to palpation - Derm Derm: Normal color. No: Rash, Petecchiae, Purpura - Extremities Extremities: Normal. No: Deformity, Tenderness - Neuro Neuro: Alert and Oriented X 3, CNII-XII intact - GCS Eye Opening: Spontaneous Motor: Obeys Commands Verbal: Oriented Total: 15 Results - Vitals Vitals: Vital Signs - 24 hr 10/11/20 10/11/20 12:46 15:08 Temperature 36.5 C 36.8 C Heart Rate 98 80 Respiratory 14 18 Rate Blood Pressure 139/88 H 185/116 H O2 Saturation 98 100 Oxygen O2 Source Room air - Labs Labs: Laboratory Tests 10/11/20 10/11/20 10/11/20 12:51 12:51 12:51 WBC 11.4 H RBC 4.32 Hgb 13.4 Hct 41.1 MCV 95.1 MCH 31.0 MCHC 32.6 RDW 12.7 Plt Count 275 MPV 9.3 Neut # (Auto) 7.8 H Lymph # (Auto) 3.1 [place] # (Auto) 0.4 Eos # (Auto) 0.1 Baso # (Auto) 0.0 Absolute Nucleated RBC 0.00 Nucleated RBC % 0.0 Sodium 136 Potassium 3.7 Chloride 103 Carbon Dioxide 22 Anion Gap 11.0 BUN 13 Creatinine 0.7 Estimated GFR (MDRD) 90 Glucose 238 H Calcium 9.1 Total Bilirubin 0.6 AST 16 ALT 20 Alkaline Phosphatase 65 Total Protein 7.7 Albumin 4.0 Globulin 3.7 Albumin/Globulin Ratio 1.1 Lipase 37 TSH 2.16 Urine Color Urine Clarity Urine pH Ur Specific [place] Urine Protein Urine Glucose (UA) Urine Ketones Urine Occult Blood Urine Nitrite Urine Bilirubin Urine Urobilinogen Ur Leukocyte Esterase Urine RBC Urine WBC Ur Squamous Epith Cells Urine Bacteria Ur Microscopic Review Urine Culture Comments Urine HCG, Qual 10/11/20 10/11/20 13:10 13:10 WBC RBC Hgb Hct MCV MCH MCHC RDW Plt Count MPV Neut # (Auto) Lymph # (Auto) [place] # (Auto) Eos # (Auto) Baso # (Auto) Absolute Nucleated RBC Nucleated RBC % Sodium Potassium Chloride Carbon Dioxide Anion Gap BUN Creatinine Estimated GFR (MDRD) Glucose Calcium Total Bilirubin AST ALT Alkaline Phosphatase Total Protein Albumin Globulin Albumin/Globulin Ratio Lipase TSH Urine Color YELLOW Urine Clarity HAZY Urine pH 5.5 Ur Specific [place] >=1.030 H Urine Protein NEGATIVE Urine Glucose (UA) NEGATIVE Urine Ketones TRACE Urine Occult Blood LARGE H Urine Nitrite POSITIVE H Urine Bilirubin NEGATIVE Urine Urobilinogen 0.2 (NORMAL) Ur Leukocyte Esterase NEGATIVE Urine RBC TNTC H Urine WBC 0-3 Ur Squamous Epith Cells FEW Squamous Urine Bacteria Few Ur Microscopic Review INDICATED Urine Culture Comments INDICATED Urine HCG, Qual NEGATIVE - Rads (name of study) pelvic US Radiology: See rad report, Other (Tech note reports a left ovarian cyst approximately 2 cm. There is a small 1 cm posterior fibroid. Heterogeneous myometrium.) PD MEDICAL DECISION MAKING - ED course Complexity details: reviewed results, re-evaluated patient, considered differential, d/w patient ED course: 45-year-old female presents emergency department with 1 week of heavy vaginal bleeding. She does have Nexplanon in place. She also endorses significant fatigue and weakness. She does have a history of diabetes mellitus as well as Hemanth's thyroiditis. Today on exam she has a very healthy hemoglobin greater than 14. Her TSH is normal and her electrolytes are otherwise unremarkable. Pelvic ultrasound does not reveal an obvious cause for her vaginal bleeding. She does have a very small posterior fibroid as well as a 2 cm left ovarian cyst though these are not likely contributing to her symptoms. She denies any dysuria urgency or frequency. I do note a nitrite positive UA. However will defer antibiotics unless symptoms fail to improve or she has a positive culture. Patient admits that sometimes her vaginal bleeding will wax and wane. Bettina encouraged a careful watch and wait approach as well as to have her have very close follow-up with her primary care provider as well as OB. She is to return to the emergency department if she develops sustained tachycardia, has any syncopal or presyncopal episodes. The vaginal bleeding fails to resolve or she has any other emergent medical concerns. Departure - Departure Disposition: 01 Home, Self Care Clinical Impression: Vaginal bleeding Condition: Stable Record reviewed to determine appropriate education?: Yes Comments: February your ultrasound today did not reveal an obvious cause for your vaginal bleeding. You do have a very small fibroid in your uterus as well as a small ovarian cyst but these are not likely the cause of your heavy bleeding. Your hemoglobin was normal today as well as rest of your electrolytes. We will defer any antibiotics today unless your urine culture is positive. I would like to encourage you to continue to monitor the amount of bleeding you are having. If you develop a sustained heart rate greater than 120, feel faint or have any fainting episodes, or short of breath please return immediately to the emergency department. Please discuss this ED visit with your primary care doctor as well as the [facility]. If the bleeding does not improve in a short period of time they may want to consider hormone supplementation.
[2020-10-11 13:32] LABS: BACTERIA,URINE Few /HPF (None Seen); RBC,URINE TNTC /HPF (0-5); SQUAMOUS EPITHELIAL CELL,UR FEW Squamous (<= Few)
--- NOTE | 2020-10-11 15:09 | Ultrasound Report ---
PROCEDURE: Pelvic w/Transvaginal INDICATIONS: VAG BLEED X1 WEEK NEXPLANON IMPLANT TECHNIQUE: Real-time scanning was performed of the pelvic organs, with image documentation. Additional endovagi nal scanning was necessary due to incomplete visualization of the adnexal and endometrial structures by transabdominal scanning. COMPARISON: None. FINDINGS: Transabdominal scanning: Limited scanning through the kidneys shows no hydronephrosis. No pathologi c free abdominal or pelvic fluid. Endovaginal scanning: Uterus: Uterus is normal in size at 8.6 x 3.8 x 4.2 cm. The endometrium measures 4-5 mm in combined thickness. Posterior subserosal fibroid is seen measuring 9 mm. Ovaries: Right ovary measures 2.7 x 2.3 x 1.6 cm left ovary measures 4.5 x 3.4 x 3.0 cm. Presumed le ft ovarian cyst measuring 3.6 x 3.1 x 2.6 cm, technically nonspecific. IMPRESSION: Small uterine fibroid Left ovarian cyst, technically nonspecific. Six-week follow-up ultrasound could be performed to docum ent resolution. Reviewed by: Jose Gaston MD on 10/11/2020 3:08 PM PST Approved by: Jose Gaston MD on 10/11/2020 3:08 PM PST Station ID: [id number]
[2020-10-11 15:54] VITALS: BP 160/95
== END 2020-10-11 16:10 | disposition home or self-care (01) ==
LOC: ED 12:29
DX: N93.9 Abnormal uterine and vaginal bleeding, unspecified (principal); D25.2 Subserosal leiomyoma of uterus; N83.202 Unspecified ovarian cyst, left side; E11.9 Type 2 diabetes mellitus without complications; E06.3 Autoimmune thyroiditis; Z79.84 Long term (current) use of oral hypoglycemic drugs; Z97.5 Presence of (intrauterine) contraceptive device
CPT/HCPCS: 36415; 80053; 81001; 81003; 81025; 83690; 84443; 85025; 87086; 87181; 99284

== ENCOUNTER 2020-11-19 02:11 | Emergency (ER) | payer MEDICAID ==
--- NOTE | 2020-11-19 02:13 | ED Physician Documentation ---
PD HPI HEENT - Stated complaint Stated Complaint: TOOTH PX - History obtained from History obtained from: Patient - History of Present Illness Timing - onset: Last night Timing - details: Gradual onset Pain level now: 8 Location: Tooth Improves: Nothing Worsens: Other (chewing (when chewing on right side)) Associated symptoms: No: Fever, Facial swelling Recently seen: Clinic - Additional information Additional information: c/o right lower tooth pain. she says this initially began approximately 3 weeks ago and she was evaluated at a walk-in clinic in [place]; she says she was prescribed penicillin and tramadol and had near-resolution of her symptoms until last night when the pain reoccurred and has been unrelieved with ibuprofen and tylenol. she says she has an appointment in approximately 10 days to have the tooth extracted. Review of Systems Constitutional: denies: Fever Throat: reports: Dental pain / toothache. denies: Oral lesions / sores PD PAST MEDICAL HISTORY - Past Medical History Cardiovascular: None Respiratory: None Neuro: None Endocrine/Autoimmune: Type 2 diabetes, HyPOthyroidism GI: Cholelithiasis : None HEENT: None Psych: Depression, Anxiety Musculoskeletal: Chronic back pain Derm: None - Past Surgical History Past Surgical History: Yes General: Cholecystectomy - Present Medications Home Medications: Ambulatory Orders Medication Instructions Recorded Confirmed Bupropion HCl [Wellbutrin] 100 mg PO DAILY 04/25/16 10/11/20 Escitalopram [Lexapro] 10 mg PO DAILY 04/25/16 10/11/20 Levothyroxine [Synthroid] 25 mcg PO QDAC 04/25/16 10/11/20 Atorvastatin [Lipitor] 0 mg ORAL DAILY 10/11/20 10/11/20 Colestipol HCl [Colestid] 2 gm PO HS 10/11/20 10/11/20 Glimepiride [Amaryl] 0 mg PO BID 10/11/20 10/11/20 HYDROcod/ACETAM 5/325 [[place] 5/325] 1 - 2 ea PO Q6H PRN #15 tablet 11/19/20 clindamycin HCL [Clindamycin HCl] 300 mg PO Q6HR #27 capsule 11/19/20 - Allergies Allergies/Adverse Reactions: Allergies Allergy/AdvReac Type Severity Reaction Status Date / Time No Known Drug Allergies Allergy Verified 11/19/20 02:21 - Social History Does the pt smoke?: No Smoking Status: Never smoker Does the pt drink ETOH?: Yes Does the pt have substance abuse?: No - Immunizations Immunizations are current?: Yes - POLST Patient has POLST: No PD ED PE NORMAL - Vitals Vital signs reviewed: Yes - General General: Alert and oriented X 3, Well developed/nourished, Other (appears uncomfortable) - HEENT HEENT: Moist mucous membranes, Pharynx benign, Other (tender to percussion mandibular right second molar; no erythema or swelling of gingiva. dentition otherwise benign) - Neck Neck: Supple, no meningeal sign Results - Vitals Vitals: Vital Signs - 24 hr 11/19/20 02:15 Temperature 36.6 C Heart Rate 68 Respiratory 18 Rate Blood Pressure 171/102 H O2 Saturation 100 Oxygen O2 Source Room air PD MEDICAL DECISION MAKING - ED course Complexity details: reviewed old records, considered differential, d/w patient ED course: c/o right second mandibular molar pain with unremarkable exam except tenderness to percussion of the tooth. she says the filling is cracked and she is scheduled with Brett to have the tooth extracted in 10 days. will rx antibiotic for possible early dental infection and analgesia provided with hydrocodone rx as well Departure - Departure Disposition: 01 Home, Self Care Clinical Impression: Pain, dental Condition: Good Instructions: ED Tooth Pain Follow-Up: Tonya Gimenez PA-C [Primary Care Provider] - Prescriptions: clindamycin HCL [Clindamycin HCl] 300 mg PO Q6HR #27 capsule HYDROcod/ACETAM 5/325 [[place] 5/325] 1 - 2 ea PO Q6H PRN #15 tablet PRN Reason: Pain
[2020-11-19 02:21] VITALS: BP 171/102
[2020-11-19] MEDS ORDERED: CLINDAMYCIN 150 MG CAPSULE PO STA (02:23)
[2020-11-19] MEDS ORDERED: HYDROcod/ACETAM 5/325 MG TABLET PO STA (02:23)
== END 2020-11-19 02:30 | disposition home or self-care (01) ==
LOC: ED 02:11
DX: K08.89 Other specified disorders of teeth and supporting structures (principal); E11.9 Type 2 diabetes mellitus without complications; Z79.84 Long term (current) use of oral hypoglycemic drugs
CPT/HCPCS: 99282; 99283; A9270

== ENCOUNTER 2020-11-21 21:28 | Emergency (ER) | payer MEDICAID ==
[2020-11-21 21:45] VITALS: BP 136/84
[2020-11-21] MEDS ORDERED: cefTRIAXone 1 GM VIAL IM STA (22:05)
[2020-11-21] MEDS ORDERED: LIDOCAINE 1% 2 ML VIAL MC ONE (22:05)
--- NOTE | 2020-11-21 22:15 | ED Physician Documentation ---
History of Present Illness - Stated complaint Stated Complaint: RT SIDE MOUTH PX - Chief complaint Chief Complaint: Heent - Additonal information Additional information: 45-year-old female presents the emergency department for a evaluation of increased right lower jaw swelling. Seen in this emergency department 2 nights ago for pain at tooth #31. She was put on a course of clindamycin as well as prescribed [place]. Since then she reports that the pain at the tooth has resolved but she has developed some mildly increased right lower jawline swelling. No trismus or fevers. Normal phonation. Tolerating oral secretions. Full range of motion in neck. Review of Systems Constitutional: reports: Reviewed and negative Eyes: reports: Reviewed and negative Nose: reports: Reviewed and negative Throat: reports: Dental pain / toothache Cardiac: reports: Reviewed and negative Respiratory: reports: Reviewed and negative GI: reports: Reviewed and negative : reports: Reviewed and negative PD PAST MEDICAL HISTORY - Past Medical History Cardiovascular: None Respiratory: None Neuro: None Endocrine/Autoimmune: Type 2 diabetes, HyPOthyroidism GI: Cholelithiasis : None HEENT: None Psych: Depression, Anxiety Musculoskeletal: Chronic back pain Derm: None - Past Surgical History Past Surgical History: Yes General: Cholecystectomy - Present Medications Home Medications: Ambulatory Orders Medication Instructions Recorded Confirmed Bupropion HCl [Wellbutrin] 100 mg PO DAILY 04/25/16 11/21/20 Escitalopram [Lexapro] 10 mg PO DAILY 04/25/16 11/21/20 Levothyroxine [Synthroid] 25 mcg PO QDAC 04/25/16 11/21/20 Atorvastatin [Lipitor] 0 mg ORAL DAILY 10/11/20 11/21/20 Colestipol HCl [Colestid] 2 gm PO HS 10/11/20 11/21/20 Glimepiride [Amaryl] 0 mg PO BID 10/11/20 11/21/20 HYDROcod/ACETAM 5/325 [[place] 5/325] 1 - 2 ea PO Q6H PRN #15 tablet 11/19/20 11/21/20 clindamycin HCL [Clindamycin HCl] 300 mg PO Q6HR #27 capsule 11/19/20 11/21/20 Chlorhexidine Gluconate [Peridex] 15 ml MM BID #1 bottle 11/21/20 cephALEXin [Keflex] 500 mg PO TID #21 capsule 11/21/20 - Allergies Allergies/Adverse Reactions: Allergies Allergy/AdvReac Type Severity Reaction Status Date / Time No Known Drug Allergies Allergy Verified 11/21/20 21:45 - Social History Does the pt smoke?: No Smoking Status: Never smoker Does the pt drink ETOH?: Yes Does the pt have substance abuse?: No - Immunizations Immunizations are current?: Yes - POLST Patient has POLST: No PD ED PE EXPANDED - HEENT HEENT: PERRL, EOMI. No: Dentition normal (Mild gumline swelling right lower jaw surrounding tooth #31. No obvious drainage. No trismus. Normal phonation normal swallow. There is some tenderness to palpation just under the mandible on the right side. No obvious lymphadenopathy appreciated) Results - Vitals Vitals: Vital Signs - 24 hr 11/21/20 11/21/20 21:42 21:57 Temperature 36.4 C L 36.4 C L Heart Rate 85 85 Respiratory 17 17 Rate Blood Pressure 136/84 H 136/84 H O2 Saturation 99 99 Oxygen O2 Source Room air PD MEDICAL DECISION MAKING - ED course Complexity details: reviewed results, re-evaluated patient, d/w patient ED course: This is a well-appearing 45-year-old female the presents the emergency dep artment for evaluation of increased swelling at the right lower jaw. She was diagnosed with a dental abscess 2 nights ago and started on clindamycin. Despite the clindamycin she has mild increase in swelling at the jaw. However the tooth pain is improved. She has no findings of external facial cellulitis. Though clindamycin is typically an appropriate antibiotic in the setting of dental infection it may not cover all the associated antimicrobials. Patient was given injection of ceftriaxone here in the emergency department and will be placed on Keflex as an outpatient. We will also recommend Peridex mouth rinse. Patient does have a follow-up appointment scheduled with [facility] dental clinics in about 3 weeks time. I will give her the information for Dr. Nolen in [place] for sooner follow-up if necessary. Emergent return precautions to the ER discussed. Departure - Departure Disposition: 01 Home, Self Care Clinical Impression: Dental abscess Condition: Stable Record reviewed to determine appropriate education?: Yes Instructions: ED Abscess Dental Follow-Up: Shubham Nolen DDS [Provider Admit Priv/Credential] - Prescriptions: cephALEXin [Keflex] 500 mg PO TID #21 capsule Chlorhexidine Gluconate [Peridex] 15 ml MM BID #1 bottle Comments: February please fill the prescription for the new antibiotic and begin taking tomorrow evening as directed. I have also prescribed a mouth rinse. It is not always covered by insurance or if you find it cost prohibitive please continue to rinse your mouth 3 times daily with warm salt water. Continue to follow-up with [facility] dental clinics as already scheduled. I have also given you the contact information for Dr. Wise and oral surgeon in [place]. He may be able to assess with tooth extraction sooner than [facility] if he can accommodate your insurance. If despite the new antibiotic you have increased facial swelling, fevers, cannot speak normally or tolerate your oral secretions then please return immediately to the ER
== END 2020-11-21 22:31 | disposition home or self-care (01) ==
LOC: ED 21:28
DX: K04.7 Periapical abscess without sinus (principal); E11.9 Type 2 diabetes mellitus without complications; Z79.84 Long term (current) use of oral hypoglycemic drugs
CPT/HCPCS: 96372; 99283

== ENCOUNTER 2021-02-27 08:00 | Outpatient (CLI) | payer MEDICAID ==
[2021-02-27 18:02] LABS: BASOPHILS % (AUTO) 0.3 %; EOSINOPHILS # (AUTO) 0.1 10^3/uL (0.0-0.7); EOSINOPHILS % (AUTO) 0.9 %; HCT - HEMATOCRIT 40.3 % (37.0-47.0); LYMPHOCYTES # (AUTO) 2.5 10^3/uL (1.5-3.5); LYMPHOCYTES % (AUTO) 21.7 %; MEAN CORPUSCULAR HEMOGLOBIN 30.3 pg (27.0-31.0); MEAN CORPUSCULAR HGB CONC 32.3 g/dL (32.0-36.0); MEAN CORPUSCULAR VOLUME 93.9 fL (81.0-99.0); MEAN PLATELET VOLUME 9.8 fL (7.9-10.8); MONOCYTES # (AUTO) 0.5 10^3/uL (0.0-1.0); MONOCYTES % (AUTO) 4.3 %; NEUTROPHILS # (AUTO) 8.3 10^3/uL (1.5-6.6); NEUTROPHILS % (AUTO) 72.5 %; PLT - PLATELET COUNT 253 10^3/uL (130-450); RED BLOOD COUNT 4.29 10^6/uL (4.20-5.40); RED CELL DISTRIBUTION WIDTH 13.2 % (12.0-15.0); WHITE BLOOD COUNT 11.5 x10^3/uL (4.8-10.8)
[2021-02-27 18:23] LABS: ALBUMIN/GLOBULIN RATIO 1.1 (1.0-2.2); ALKALINE PHOSPHATASE 67 IU/L (42-121); ALT ALANINE AMINOTRANSFERASE 21 IU/L (10-60); AST ASPARTATE AMINOTRANSFERASE 17 IU/L (10-42); BILIRUBIN,TOTAL 0.7 mg/dL (0.2-1.0); BUN - BLOOD UREA NITROGEN 12 mg/dL (6-20); CALCIUM 9.1 mg/dL (8.5-10.3); CARBON DIOXIDE - CO2 22 mmol/L (21-32); CHLORIDE 103 mmol/L (101-111); CHOL/HDL RATIO 3.7 (<4.4); CHOLESTEROL 165 mg/dL; CREATININE 0.6 mg/dL (0.4-1.0); GFR - MDRD 108 (>89); GLUCOSE 184 mg/dL (70-100); HDL CHOLESTEROL 45 mg/dL; LDL CHOLESTEROL,CALCULATED 80 mg/dL; LDL/HDL RATIO 1.8 (<4.4); POTASSIUM 3.9 mmol/L (3.5-5.0); SODIUM 138 mmol/L (135-145); TOTAL PROTEIN 7.6 g/dL (6.7-8.2); TRIGLYCERIDES 200 mg/dL; VLDL CHOLESTEROL 40 mg/dL
[2021-02-27 18:28] LABS: THYROID STIMULATING HORMONE 1.39 uIU/mL (0.34-5.60)
[2021-02-27 18:39] LABS: CREATININE,URINE 200.4 mg/dL; MICROALBUMIN,URINE 1.6 mg/dL (0-300.0)
[2021-02-27 20:17] LABS: ESTIMATED AVERAGE GLUCOSE 177 mg/dL (70-100); HEMOGLOBIN A1c% 7.8 % (4.27-6.07)
== END 2021-02-27 23:59 | disposition home or self-care (01) ==
LOC: LAB.WCP 08:00
PROVIDERS: ATTEND Physician Assistant Medical
DX: E11.9 Type 2 diabetes mellitus without complications (principal); E78.5 Hyperlipidemia, unspecified; E53.8 Deficiency of other specified B group vitamins; E06.3 Autoimmune thyroiditis
CPT/HCPCS: 36415; 80053; 80061; 82043; 82570; 82607; 83036; 83721; 84443; 85025

== ENCOUNTER 2022-12-30 09:24 | Outpatient (CLI) | payer OTHER ==
[2022-12-30 13:25] LABS: CALCIUM 8.9 mg/dL (8.5-10.3); CREATININE 0.6 mg/dL (0.4-1.0); POTASSIUM 3.9 mmol/L (3.5-5.0); THYROID STIMULATING HORMONE 2.22 uIU/mL (0.34-5.60)
[2022-12-30 14:00] LABS: ESTIMATED AVERAGE GLUCOSE 237 mg/dL (70-100); HEMOGLOBIN A1c% 9.9 % (4.27-6.07)
== END 2022-12-30 09:25 | disposition home or self-care (01) ==
LOC: LAB.N 09:24
PROVIDERS: ATTEND Physician Assistant Medical
DX: E06.3 Autoimmune thyroiditis (principal); E11.9 Type 2 diabetes mellitus without complications
CPT/HCPCS: 36415; 80048; 83036; 84443

== ENCOUNTER 2023-01-26 15:53 | Emergency (ER) | payer OTHER ==
[2023-01-26 16:02] VITALS: BP 158/108
[2023-01-26] MEDS ORDERED: SODIUM CHLORIDE 0.9% 1,000 ML IV STA (16:15)
--- NOTE | 2023-01-26 16:16 | ED Physician Documentation ---
History of Present Illness - Stated complaint Stated Complaint: SOA/NAUSEA/DIZZY - Chief complaint Chief Complaint: General - History obtained from History obtained from: Patient - Additonal information Additional information: 47-year-old woman with history of Hemanth's thyroiditis and type 2 diabetes. Recently put on Jardiance about a week ago for uncontrolled blood sugars. Since then she has had nonspecific symptoms of lightheadedness, she feels out of it. She is short of breath. Has very mild nausea. No abdominal pain. Mild headache. She did not take the Jardiance today but she is worried about ketoacidosis. PD PAST MEDICAL HISTORY - Past Medical History Cardiovascular: None Respiratory: None Neuro: None Endocrine/Autoimmune: Type 2 diabetes, HyPOthyroidism GI: Cholelithiasis : None HEENT: None Psych: Depression, Anxiety Musculoskeletal: Chronic back pain Derm: None - Past Surgical History Past Surgical History: Yes General: Cholecystectomy - Present Medications Home Medications: Ambulatory Orders Medication Instructions Recorded Confirmed Bupropion HCl [Wellbutrin] 100 mg PO DAILY 04/25/16 11/21/20 Escitalopram [Lexapro] 10 mg PO DAILY 04/25/16 11/21/20 Levothyroxine [Synthroid] 25 mcg PO QDAC 04/25/16 11/21/20 Atorvastatin [Lipitor] 0 mg ORAL DAILY 10/11/20 11/21/20 Colestipol HCl [Colestid] 2 gm PO HS 10/11/20 11/21/20 Glimepiride [Amaryl] 0 mg PO BID 10/11/20 11/21/20 HYDROcod/ACETAM 5/325 [[place] 5/325] 1 - 2 ea PO Q6H PRN #15 tablet 11/19/20 11/21/20 clindamycin HCL [Clindamycin HCl] 300 mg PO Q6HR #27 capsule 11/19/20 11/21/20 Chlorhexidine Gluconate [Peridex] 15 ml MM BID #1 bottle 11/21/20 cephALEXin [Keflex] 500 mg PO TID #21 capsule 11/21/20 - Allergies Allergies/Adverse Reactions: Allergies Allergy/AdvReac Type Severity Reaction Status Date / Time metformin Allergy Cramps Verified 01/26/23 16:02 sertraline [From Zoloft] Allergy Cramps Verified 01/26/23 16:02 - Social History Does the pt smoke?: No Smoking Status: Never smoker Does the pt drink ETOH?: Yes Does the pt have substance abuse?: No - Immunizations Immunizations are current?: Yes - POLST Patient has POLST: No PD ED PE NORMAL - Vitals Vital signs reviewed: Yes - General General: Alert and oriented X 3, No acute distress - HEENT HEENT: PERRL, EOMI - Neck Neck: Supple, no meningeal sign, No bony TTP - Cardiac Cardiac: RRR, No murmur - Respiratory Respiratory: No respiratory distress, Clear bilaterally - Abdomen Abdomen: Non tender - Extremities Extremities: No edema, No calf tenderness / cord - Neuro Neuro: Alert and oriented X 3, Normal speech Results - Vitals Vitals: Vital Signs - 24 hr 01/26/23 15:56 Temperature 36.6 C Heart Rate 97 Respiratory 16 Rate Blood Pressure 158/108 H O2 Saturation 100 Oxygen O2 Source Room air - EKG (time done) 1637 EKG releavant findings:: EKG personally interpreted by author of this note. Relevant findings are: Rate: Rate (enter#) (93) Rhythm: NSR [place]: Normal Intervals: Normal CT QRS: Normal Ischemia: Normal ST segments - Labs Labs: Laboratory Tests 01/26/23 01/26/23 01/26/23 16:35 16:35 16:57 WBC 10.2 RBC 4.66 Hgb 14.0 Hct 43.2 MCV 92.7 MCH 30.0 MCHC 32.4 RDW 12.7 Plt Count 260 MPV 9.9 Neut # (Auto) 6.1 Lymph # (Auto) 3.5 [place] # (Auto) 0.5 Eos # (Auto) 0.1 Baso # (Auto) 0.1 Absolute Nucleated RBC 0.00 Nucleated RBC % 0.0 VBG pH 7.405 VBG pCO2 35.2 L VBG pO2 66.0 H VBG HCO3 22.1 L VBG Total CO2 23.0 L VBG O2 Saturation 93.0 H VBG Base Excess -3.0 L Sodium 137 Potassium 3.4 L Chloride 108 Carbon Dioxide 22 Anion Gap 7.0 BUN 15 Creatinine 0.8 Estimated GFR (MDRD) 77 L Glucose 239 H Calcium 9.0 Magnesium 2.1 Total Bilirubin 0.5 AST 39 ALT 50 Alkaline Phosphatase 60 Total Protein 7.7 Albumin 4.2 Globulin 3.5 Albumin/Globulin Ratio 1.2 Serum Ketones NEGATIVE - Rads (name of study) Single view chest x-ray is unremarkable Relevant Findings:: Final report received, EMP independent interpretation of test PD Medical Decision Making - ED course ED course: 47-year-old woman presents with kind of nonspecific symptoms including lightheadedness, shortness of breath after starting Jardiance. The specific concern was for ketoacidosis which she does not have. Her venous gas is basica lly normal. CBC normal. CMP normal save very mild hypokalemia and modest hyperglycemia. Serum ketones negative. She was feeling better after IV fluids. Chest x-ray and EKG unremarkable. Departure - Departure Disposition: 01 Home, Self Care Clinical Impression: Medication side effect, Hyperglycemia, Dyspnea Condition: Good Record reviewed to determine appropriate education?: Yes Instructions: ED Dyspnea Shortness of Breath Comments: As discussed, the half-life of Jardiance is a little over 12 hours so we would expect you to start feeling better in about the next 24 hours. Please return at that time if not improved, sooner for new or worsening symptoms. Follow-up with your doctor to discuss alternative blood sugar management.
--- NOTE | 2023-01-26 16:39 | XRAY Report ---
PROCEDURE: Chest 1 View X-Ray INDICATIONS: dyspnea TECHNIQUE: One view of the chest was acquired. COMPARISON: None. FINDINGS: Surgical changes and devices: None. Lungs and pleura: No pleural effusions or pneumothorax. Lungs are clear. Mediastinum: Mediastinal contours appear normal. Heart size is normal. Bones and chest wall: No suspicious bony lesions. Overlying soft tissues appear unremarkable. IMPRESSION: Portable chest within normal limits. Reviewed by: Trenton Carrington MD on 01/26/2023 3:37 PM CLAIRE Approved by: Trenton Carrington MD on 01/26/2023 3:37 PM MANNYDT Station ID: [id number]
[2023-01-26 16:44] LABS: BASOPHILS # (AUTO) 0.1 10^3/uL (0.0-0.1); BASOPHILS % (AUTO) 0.5 %; EOSINOPHILS # (AUTO) 0.1 10^3/uL (0.0-0.7); HCT - HEMATOCRIT 43.2 % (37.0-47.0); LYMPHOCYTES # (AUTO) 3.5 10^3/uL (1.5-3.5); LYMPHOCYTES % (AUTO) 33.8 %; MEAN CORPUSCULAR HGB CONC 32.4 g/dL (32.0-36.0); MEAN CORPUSCULAR VOLUME 92.7 fL (81.0-99.0); MEAN PLATELET VOLUME 9.9 fL (7.9-10.8); MONOCYTES # (AUTO) 0.5 10^3/uL (0.0-1.0); MONOCYTES % (AUTO) 4.7 %; NEUTROPHILS # (AUTO) 6.1 10^3/uL (1.5-6.6); NEUTROPHILS % (AUTO) 59.7 %; PLT - PLATELET COUNT 260 10^3/uL (130-450); RED BLOOD COUNT 4.66 10^6/uL (4.20-5.40); RED CELL DISTRIBUTION WIDTH 12.7 % (12.0-15.0); WHITE BLOOD COUNT 10.2 x10^3/uL (4.8-10.8)
[2023-01-26 16:51] LABS: VBG HCO3 22.1 mmol/L (23-28); VBG PCO2 35.2 mmHg (41-51); VBG PH 7.405 (7.31-7.41)
[2023-01-26 17:13] LABS: ALBUMIN 4.2 g/dL (3.2-5.5); ALBUMIN/GLOBULIN RATIO 1.2 (1.0-2.2); ALKALINE PHOSPHATASE 60 IU/L (42-121); ALT ALANINE AMINOTRANSFERASE 50 IU/L (10-60); AST ASPARTATE AMINOTRANSFERASE 39 IU/L (10-42); BILIRUBIN,TOTAL 0.5 mg/dL (0.2-1.0); BUN - BLOOD UREA NITROGEN 15 mg/dL (6-20); CARBON DIOXIDE - CO2 22 mmol/L (21-32); CHLORIDE 108 mmol/L (101-111); CREATININE 0.8 mg/dL (0.4-1.0); GFR - MDRD 77 (>89); GLUCOSE 239 mg/dL (70-100); MAGNESIUM 2.1 mg/dL (1.7-2.8); POTASSIUM 3.4 mmol/L (3.5-5.0); SODIUM 137 mmol/L (135-145); TOTAL PROTEIN 7.7 g/dL (6.7-8.2)
[2023-01-26 17:27] LABS: KETONES, SERUM (ACETEST) NEGATIVE (NEGATIVE)
== END 2023-01-26 17:34 | disposition home or self-care (01) ==
LOC: ED 15:53
DX: R06.00 Dyspnea, unspecified (principal); E11.65 Type 2 diabetes mellitus with hyperglycemia; T50.995A Adverse effect of other drugs, medicaments and biological substances, initial encounter; E03.9 Hypothyroidism, unspecified; E06.3 Autoimmune thyroiditis; Z79.84 Long term (current) use of oral hypoglycemic drugs; Z79.899 Other long term (current) drug therapy
CPT/HCPCS: 36415; 80053; 82009; 82803; 83735; 85025; 93005; 99284

== ENCOUNTER 2023-04-02 08:12 | Outpatient (CLI) | payer OTHER ==
[2023-04-02 13:11] LABS: ALBUMIN 3.6 g/dL (3.2-5.5); ALKALINE PHOSPHATASE 57 IU/L (42-121); ALT ALANINE AMINOTRANSFERASE 29 IU/L (10-60); AST ASPARTATE AMINOTRANSFERASE 20 IU/L (10-42); BILIRUBIN,TOTAL 0.4 mg/dL (0.2-1.0); BUN - BLOOD UREA NITROGEN 10 mg/dL (6-20); CALCIUM 8.7 mg/dL (8.5-10.3); CARBON DIOXIDE - CO2 23 mmol/L (21-32); CHLORIDE 107 mmol/L (101-111); CHOL/HDL RATIO 3.9 (<4.4); CHOLESTEROL 160 mg/dL; CREATININE 0.5 mg/dL (0.4-1.0); GFR - MDRD 132 (>89); GLUCOSE 207 mg/dL (70-100); HDL CHOLESTEROL 41 mg/dL; LDL CHOLESTEROL,CALCULATED 74 mg/dL; LDL/HDL RATIO 1.8 (<4.4); SODIUM 139 mmol/L (135-145); TOTAL PROTEIN 7.2 g/dL (6.7-8.2); TRIGLYCERIDES 223 mg/dL; VLDL CHOLESTEROL 45 mg/dL
[2023-04-02 13:35] LABS: ESTIMATED AVERAGE GLUCOSE 235 mg/dL (70-100); HEMOGLOBIN A1c% 9.8 % (4.27-6.07)
== END 2023-04-02 08:13 | disposition home or self-care (01) ==
LOC: LAB.N 08:12
PROVIDERS: ATTEND Physician Assistant Medical
DX: E11.9 Type 2 diabetes mellitus without complications (principal)
CPT/HCPCS: 36415; 80053; 80061; 83036; 83721

== ENCOUNTER 2023-07-09 08:07 | Outpatient (CLI) | payer BC, OTHER ==
[2023-07-09 12:36] LABS: CALCIUM 9.3 mg/dL (8.5-10.3); CREATININE 0.6 mg/dL (0.6-1.3); POTASSIUM 4.2 mmol/L (3.5-4.5)
[2023-07-09 13:07] LABS: ESTIMATED AVERAGE GLUCOSE 217 mg/dL (70-100); HEMOGLOBIN A1c% 9.2 % (4.27-6.07)
== END 2023-07-09 08:08 | disposition home or self-care (01) ==
LOC: LAB.N 08:07
PROVIDERS: ATTEND Physician Assistant Medical
DX: E11.9 Type 2 diabetes mellitus without complications (principal)
CPT/HCPCS: 36415; 80048; 83036

== ENCOUNTER 2023-10-01 08:45 | Outpatient (CLI) | payer BC ==
[2023-10-01 12:47] LABS: ALBUMIN 4.3 g/dL (3.2-5.5); ALBUMIN/GLOBULIN RATIO 1.5 (1.0-2.2); ALKALINE PHOSPHATASE 61 IU/L (42-121); ALT ALANINE AMINOTRANSFERASE 18 IU/L (10-60); AST ASPARTATE AMINOTRANSFERASE 10 IU/L (10-42); BILIRUBIN,TOTAL 0.5 mg/dL (0.2-1.0); BUN - BLOOD UREA NITROGEN 12 mg/dL (6-20); CALCIUM 9.4 mg/dL (8.5-10.3); CARBON DIOXIDE - CO2 24 mmol/L (21-32); CHLORIDE 105 mmol/L (101-111); CHOL/HDL RATIO 3.5 (<4.4); CHOLESTEROL 138 mg/dL; CREATININE 0.7 mg/dL (0.6-1.3); GFR - MDRD 89 (>89); GLUCOSE 185 mg/dL (74-104); HDL CHOLESTEROL 39 mg/dL; LDL CHOLESTEROL,CALCULATED 63 mg/dL; LDL/HDL RATIO 1.6 (<4.4); POTASSIUM 3.7 mmol/L (3.5-4.5); SODIUM 138 mmol/L (135-145); TOTAL PROTEIN 7.2 g/dL (6.4-8.9); TRIGLYCERIDES 182 mg/dL (48-352); VLDL CHOLESTEROL 36 mg/dL
[2023-10-01 13:08] LABS: ESTIMATED AVERAGE GLUCOSE 151 mg/dL (70-100); HEMOGLOBIN A1c% 6.9 % (4.27-6.07)
== END 2023-10-01 08:46 | disposition home or self-care (01) ==
LOC: LAB.N 08:45
PROVIDERS: ATTEND Physician Assistant Medical
DX: E78.5 Hyperlipidemia, unspecified (principal); E53.8 Deficiency of other specified B group vitamins; E11.9 Type 2 diabetes mellitus without complications
CPT/HCPCS: 36415; 80053; 80061; 82607; 83036; 83721

== ENCOUNTER 2024-01-01 09:09 | Outpatient (CLI) | payer BC ==
[2024-01-01 12:15] LABS: CALCIUM 9.1 mg/dL (8.5-10.3); CREATININE 0.7 mg/dL (0.6-1.3)
[2024-01-01 12:25] LABS: ESTIMATED AVERAGE GLUCOSE 166 mg/dL (70-100); HEMOGLOBIN A1c% 7.4 % (4.27-6.07)
== END 2024-01-01 09:10 | disposition home or self-care (01) ==
LOC: LAB.N 09:09
PROVIDERS: ATTEND Physician Assistant Medical
DX: E11.9 Type 2 diabetes mellitus without complications (principal)
CPT/HCPCS: 36415; 80048; 83036

== ENCOUNTER 2024-04-30 07:54 | Outpatient (CLI) | payer BC ==
[2024-04-30 11:52] LABS: BASOPHILS # (AUTO) 0.1 10^3/uL (0.0-0.1); BASOPHILS % (AUTO) 0.4 %; EOSINOPHILS # (AUTO) 0.2 10^3/uL (0.0-0.7); EOSINOPHILS % (AUTO) 1.6 %; HCT - HEMATOCRIT 41.5 % (37.0-47.0); HGB - HEMOGLOBIN 13.1 g/dL (12.0-16.0); LYMPHOCYTES # (AUTO) 2.9 10^3/uL (1.5-3.5); LYMPHOCYTES % (AUTO) 25.9 %; MEAN CORPUSCULAR HGB CONC 31.6 g/dL (32.0-36.0); MEAN PLATELET VOLUME 9.6 fL (7.9-10.8); MONOCYTES # (AUTO) 0.5 10^3/uL (0.0-1.0); MONOCYTES % (AUTO) 4.1 %; NEUTROPHILS # (AUTO) 7.6 10^3/uL (1.5-6.6); NEUTROPHILS % (AUTO) 67.6 %; PLT - PLATELET COUNT 258 10^3/uL (130-450); RED BLOOD COUNT 4.37 10^6/uL (4.20-5.40); RED CELL DISTRIBUTION WIDTH 12.9 % (12.0-15.0); WHITE BLOOD COUNT 11.3 x10^3/uL (4.8-10.8)
[2024-04-30 12:07] LABS: ALBUMIN 3.8 g/dL (3.2-5.5); ALBUMIN/GLOBULIN RATIO 1.5 (1.0-2.2); ALKALINE PHOSPHATASE 55 IU/L (42-121); ALT ALANINE AMINOTRANSFERASE 14 IU/L (10-60); AST ASPARTATE AMINOTRANSFERASE 12 IU/L (10-42); BILIRUBIN,TOTAL 0.5 mg/dL (0.2-1.0); BUN - BLOOD UREA NITROGEN 12 mg/dL (6-20); CALCIUM 8.8 mg/dL (8.5-10.3); CARBON DIOXIDE - CO2 25 mmol/L (21-32); CHLORIDE 107 mmol/L (101-111); CHOL/HDL RATIO 3.6 (<4.4); CHOLESTEROL 141 mg/dL; CREATININE 0.7 mg/dL (0.6-1.3); GFR - MDRD 89 (>89); GLUCOSE 164 mg/dL (74-104); HDL CHOLESTEROL 39 mg/dL; LDL CHOLESTEROL,CALCULATED 57 mg/dL; LDL/HDL RATIO 1.5 (<4.4); POTASSIUM 3.9 mmol/L (3.5-4.5); SODIUM 138 mmol/L (135-145); TOTAL PROTEIN 6.3 g/dL (6.4-8.9); TRIGLYCERIDES 223 mg/dL (48-352); VLDL CHOLESTEROL 45 mg/dL
[2024-04-30 12:19] LABS: THYROID STIMULATING HORMONE 1.94 uIU/mL (0.34-5.60)
[2024-04-30 12:22] LABS: ESTIMATED AVERAGE GLUCOSE 154 mg/dL (70-100)
== END 2024-04-30 07:55 | disposition home or self-care (01) ==
LOC: LAB.N 07:54
PROVIDERS: ATTEND Physician Assistant Medical
DX: Z00.00 Encounter for general adult medical examination without abnormal findings (principal); E11.9 Type 2 diabetes mellitus without complications; E53.8 Deficiency of other specified B group vitamins; E06.3 Autoimmune thyroiditis
CPT/HCPCS: 36415; 80053; 80061; 82607; 83036; 83721; 84443; 85025